=== PATIENT | male | born 1955 | race Caucasian/White ===

== ENCOUNTER → 2016-11-06 | Outpatient (CLI) | payer OTHER ==
[2016-11-06 09:03] LABS: ALT 32 U/L (21-72); AST 31 U/L (17-59); Cholesterol 179 mg/dL (<200); Creatine Kinase 332 U/L (55-170); HDL Cholesterol 51 mg/dL (40-60); Triglycerides 140 mg/dL (<150)
== END | disposition home or self-care (01) ==
LOC: LABWHC1 07:47
PROVIDERS: ATTEND Internal Medicine Interventional Cardiology
DX: E78.2 Mixed hyperlipidemia (principal)
CPT/HCPCS: 36415; 80061; 82550; 84450; 84460

== ENCOUNTER 2017-07-02 09:58 | Day surgery (SDC) | payer OTHER ==
[2017-06-29 13:16] VITALS: BMI 25.1
[~2017-07-02 09:58] MED LIST: LIDOCAINE 1% 20 ML VIAL (10MG/ML) FOR IV START INTRADERMA PRN
[2017-07-02] MEDS: LACTATED RINGERS 1,000 ML IV SCH ×2 (10:33→11:04)
[2017-07-02 10:34] VITALS: TEMP 96.8
[2017-07-02] MEDS ORDERED: PROPOFOL 10 MG/ML 20 ML VIAL IV ONE (11:08)
[2017-07-02 11:45] VITALS: RESP 16
--- NOTE | 2017-07-02 11:50 | P.PCN ---
Date of Procedure: 07/02/17 Procedure(s) Performed: Procedure: Colonoscopy and biopsy. Preoperative diagnosis: Screening for neoplasia. Postoperative diagnosis: Sigmoid diverticulosis with no evidence of acute diverticulitis, strictures, polyps or cancer. Preparation: HalfLytely prep. Sedation: Was provided by anesthesia. Brief clinical history: The patient is a 61-year-old male who is referred for this evaluation for screening for neoplasia age being his risk factor. The patient has been having episodes of unexplained diarrhea around 3 times per week. No definite dietary triggers. There is no family history of colon cancer or inflammatory bowel disease. This would be his first colonoscopy. Procedure: With the patient on his left lateral decubitus position and after informed consent and adequate sedation, the perianal area was inspected and it did not show any fissures or fistulas. There were no masses felt on digital rectal examination. The Olympus CFQ 160L video colonoscope was then inserted in the rectum in the usual fashion and advanced to the cecum. I intubated the ileocecal valve and examined the terminal ileum. There were several diverticular orifices seen scattered in the sigmoid with no evidence of acute diverticulitis or strictures. No polyps or tumors were seen. The terminal ileum and colon did not show any evidence of inflammation. I obtained biopsies from the terminal ileum and right colon. I retroflexed the endoscope in the rectum before the endoscope was withdrawn. The patient tolerated the procedure well. Plan: The patient was reassured. Discussed dietary measures. He will follow up with you as planned. Will await the biopsy results and make further recommendations. Repeat colonoscopy for screening for neoplasia in 10 years.
[2017-07-02 12:10] VITALS: BP 120/84; PULSE 89
== END 2017-07-02 12:53 | disposition home or self-care (01) ==
LOC: ORWHC2ENDO 09:58
DX: R19.7 Diarrhea, unspecified (principal); I10 Essential (primary) hypertension; E78.5 Hyperlipidemia, unspecified; I48.91 Unspecified atrial fibrillation; Z79.899 Other long term (current) drug therapy
CPT/HCPCS: 93005; 88305; 45378; J2704

== ENCOUNTER → 2017-12-01 | Outpatient (CLI) | payer OTHER ==
[2017-12-01 09:35] LABS: ALT 30 U/L (21-72); AST 22 U/L (17-59); Albumin 4.1 g/dL (3.5-5.0); Alkaline Phosphatase 60 U/L (38-126); Blood Urea Nitrogen 19 mg/dL (9-20); Calcium 8.9 mg/dL (8.4-10.2); Carbon Dioxide 27 mmol/L (22-30); Cholesterol 193 mg/dL (<200); Glucose 115 mg/dL (74-99); HDL Cholesterol 44 mg/dL (40-60); LDL Cholesterol,Calculated 129 mg/dL (0-99); Total Bilirubin 0.7 mg/dL (0.2-1.3); Total Protein 6.7 g/dL (6.3-8.2); Triglycerides 100 mg/dL (<150)
[2017-12-01 09:55] LABS: Anion Gap 11 mmol/L; Chloride 103 mmol/L (98-107); Potassium 4.7 mmol/L (3.5-5.1); Sodium 141 mmol/L (137-145)
== END | disposition home or self-care (01) ==
LOC: LABWHC1 08:44
PROVIDERS: ATTEND Internal Medicine Interventional Cardiology
DX: E78.2 Mixed hyperlipidemia (principal)
CPT/HCPCS: 36415; 80053; 80061

== ENCOUNTER 2018-04-18 15:01 | Observation (INO) | payer OTHER ==
[2018-04-18] MEDS ORDERED: ASPIRIN 81 MG PO STA (15:29)
[2018-04-18] MEDS ORDERED: SODIUM CHLORIDE 0.9% 1,000 ML IV STA (15:29)
[2018-04-18] MEDS ORDERED: METOPROLOL TARTRATE 5 MG/5 ML VIAL IVP ONE (15:31)
--- NOTE | 2018-04-18 15:35 | ED ---
Chest Pain HPI - General Chief Complaint: Chest Pain Stated Complaint: Chest Pain Hx AFib Time Seen by Provider: 04/18/18 15:16 Source: patient Mode of arrival: ambulatory Limitations: no limitations - History of Present Illness Initial Comments: Patient is a 62-year-old male with a history of atrial fibrillation presents with a chief complaint of shortness of breath and chest pain. Patient states that this started today. He cannot identify an inciting incident. There are no aggravating or alleviating factors. Patient takes 50 mg of metoprolol twice a day and states that he has not missed any doses. He states his last stress test was about 5 years ago. Patient denies any cough or sputum production. He denies any nausea, vomiting, dysuria, or diarrhea. - Related Data Home Medications Medication Instructions Recorded Confirmed Atorvastatin [Lipitor] 40 mg PO DAILY 06/29/17 04/18/18 Metoprolol Tartrate [Lopressor] 50 mg PO BID 06/29/17 04/18/18 Chlorpheniramine Maleate 4 mg PO DAILY PRN 04/18/18 04/18/18 Allergies Allergy/AdvReac Type Severity Reaction Status Date / Time No Known Allergies Allergy Verified 04/18/18 15:10 Review of Systems ROS Statement: Those systems with pertinent positive or pertinent negative responses have been documented in the HPI. ROS Other: All systems not noted in ROS Statement are negative. Respiratory: Reports: dyspnea Cardiovascular: Reports: chest pain Past Medical History Past Medical History: Atrial Fibrillation, Hyperlipidemia, Hypertension History of Any Multi-Drug Resistant Organisms: None Reported Past Surgical History: Cardiac Ablation Past Anesthesia/Blood Transfusion Reactions: No Reported Reaction Past Psychological History: No Psychological Hx Reported Smoking Status: Former smoker Past Alcohol Use History: Occasional Past Drug Use History: None Reported - Past Family History Brother(s) Family Medical History: Cancer General Exam Limitations: no limitations General appearance: alert, in no apparent distress Head exam: Present: atraumatic, normocephalic Eye exam: Present: normal appearance ENT exam: Present: normal exam, mucous membranes moist Neck exam: Present: normal inspection Respiratory exam: Present: normal lung sounds bilaterally, wheezes (Mild wheezes heard in bilateral lungs). Absent: respiratory distress Cardiovascular Exam: Present: tachycardia, irregular rhythm. Absent: systolic murmur, diastolic murmur GI/Abdominal exam: Present: soft. 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 On initial evaluation, vital signs show mild hypertension, and tachycardia. EKG performed at 1514 shows atrial fibrillation with RVR. There are no acute signs of ischemia. Patient given aspirin, and 5 mg of Lopressor IV. Patient to be evaluated basic labs including cardiac enzymes, and chest x-ray. Patient states his last stress test was about 5 years ago, patient will be admitted for further cardiac evaluation. 5:30 PM Lab evaluation of this patient is unremarkable. chest xray shows no acute process. on re-evaluation, heart rate is now in the 90's, pressure stable. patient states that he feels mild improvement. case discussed with Dr. Acevedo who accepts admission. consult placed to cardiology. patient agreeable with this care plan. Disposition Clinical Impression: Atrial fibrillation with RVR, Chest pain Disposition: ADMITTED IP TO THIS HOSP Condition: Fair Is patient prescribed a controlled substance at d/c from ED?: No Referrals: Louie Case MD [Primary Care Provider] - 1-2 days Decision to Admit Reason: Admit from EC - Out of Hospital Transfer - Req. Specs Out of Hospital Transfer - Requested Specifics: Telemetry Unit
[2018-04-18 15:59] LABS: Basophils # (A) 0.1 k/uL (0-0.2); Basophils % (A) 1 %; Eosinophils # (A) 0.2 k/uL (0-0.7); Eosinophils % (A) 2 %; HCT 49.9 % (39.0-53.0); HGB 16.3 gm/dL (13.0-17.5); Lymphocytes # (A) 1.5 k/uL (1.0-4.8); Lymphocytes % (A) 14 %; MCH 30.5 pg (25.0-35.0); MCHC 32.6 g/dL (31.0-37.0); MCV 93.4 fL (80.0-100.0); Mean Platelet Volume 7.3; Monocytes # (A) 0.5 k/uL (0-1.0); Monocytes % (A) 4 %; Neutrophils # (A) 8.5 k/uL (1.3-7.7); Neutrophils % (A) 79 %; Platelet Count 242 k/uL (150-450); RBC 5.34 m/uL (4.30-5.90); RDW 13.5 % (11.5-15.5); WBC 10.8 k/uL (3.8-10.6)
[2018-04-18 16:19] LABS: Albumin 4.6 g/dL (3.5-5.0); Calcium 9.3 mg/dL (8.4-10.2); Magnesium 1.9 mg/dL (1.6-2.3); Total Bilirubin 1.2 mg/dL (0.2-1.3)
[2018-04-18 16:32] LABS: Potassium 5.1 mmol/L (3.5-5.1)
[2018-04-18 16:35] LABS: INR 1.1 (<1.2); Partial Thromboplastin Time 23.9 sec (22.0-30.0); Prothrombin Time 10.3 sec (9.0-12.0)
--- NOTE | 2018-04-18 16:52 | XR ---
EXAMINATION TYPE: XR chest 2V DATE OF EXAM: 04/18/2018 COMPARISON: 07/18/2010 HISTORY: Chest pain TECHNIQUE: Frontal and lateral views of the chest are obtained. FINDINGS: Heart and mediastinum are within normal limits. There is a 1 cm nodular density in the rig ht midlung that is probably granuloma. There is no pleural effusion. There is no heart failure. IMPRESSION: No active cardiopulmonary disease. There is clearing of the heart failure and pleural fl uid compared to old exam. Old granulomatous disease.
[2018-04-18] MEDS ORDERED: NALOXONE 0.4 MG/ML 1 ML VIAL IV PRN (17:28)
[2018-04-18] MEDS ORDERED: SODIUM CHLORIDE 0.9% 1,000 ML IV ONE (18:53)
[2018-04-18] MEDS ORDERED: KETOROLAC 30 MG/ML 1 ML VIAL IVP STA (18:53)
[2018-04-18] MEDS ORDERED: ONDANSETRON 4 MG/2 ML VIAL IVP STA (18:53)
--- NOTE | 2018-04-18 19:43 | CT ---
EXAMINATION TYPE: CT abdomen pelvis w con DATE OF EXAM: 04/18/2018 COMPARISON: None HISTORY: Epigastric pain and nausea. CT DLP: 797.9 mGycm Automated exposure control for dose reduction was used. TECHNIQUE: Helical acquisition of images was performed from the lung bases through the pelvis. CONTRAST: Performed without Oral Contrast and with IV Contrast, patient injected with 100 mL of Isovue 300. FINDINGS: Lung bases are clear of consolidation. There is no pleural effusion. There is mild subsegmental atele ctasis at the lung bases. Heart size is normal. There are small hiatal hernia. The remainder of the s tomach appears normal. Liver appears normal. Bile ducts are not dilated. Gallbladder appears normal. There is no pancreatic mass. There is heterogeneous enhancement pattern of the spleen consistent with multiple infarcts. Thi s measures up to 4 cm. There is no adrenal mass. Kidneys show satisfactory contrast opacification. There is no hydronephrosi s. There is cortical thinning lower pole right kidney consistent with scarring. There is 2 mm calculu s lower pole right kidney. There is 1 mm calculus interpolar left kidney. There is no retroperitoneal adenopathy. Ureters are not dilated. There is no inguinal hernia. Bladder distends smoothly. There i s no free fluid in the pelvis. There is no mesenteric adenopathy or edema. Appendix appears normal. T here is umbilical hernia that contains fat. There is no evidence of a pelvic mass. There are a few lo ops of jejunum with mild wall thickening. There is 25% compression fracture of L3 that appears old. B sheldon pelvis appears intact. IMPRESSION: THERE IS MILD JEJUNAL WALL THICKENING THAT COULD RELATE TO MILD GASTROENTERITIS. HYPODENSE AREAS IN THE SPLEEN CONSISTENT WITH MULTIPLE INFARCTS. SCARRING IN THE LOWER POLE RIGHT KID CHONG. OLD L3 COMPRESSION FRACTURE.
[2018-04-18] MEDS ORDERED: metroNIDAZOLE-NS PMX 500 MG in SALINE 1 100ML.BAG IVPB STA (20:01)
[2018-04-18] MEDS ORDERED: METOPROLOL TARTRATE 50 MG TAB PO STA (20:11)
[2018-04-18] MEDS: MORPHINE SULFATE 4 MG/ML SYRINGE IVP PRN (20:27)
[2018-04-18] MEDS: APIXABAN 5 MG TAB PO SCH (23:21)
[2018-04-18 23:24] VITALS: RESP 16
[2018-04-19] MEDS: MORPHINE SULFATE 4 MG/ML SYRINGE IVP PRN ×3 (00:40→22:35)
--- NOTE | 2018-04-19 11:10 | ECHOF ---
Referral Reason: MEASUREMENTS -------- HEIGHT: 177.8 cm WEIGHT: 83.9 kg BP: 120/88 RVIDd: 2.3 cm (< 3.3) IVSd: 1.3 cm (0.6 - 1.1) LVIDd: 3.4 cm (3.9 - 5.3) LVPWd: 1.3 cm (0.6 - 1.1) IVSs: 1.5 cm LVIDs: 2.7 cm LVPWs: 1.3 cm LAESV Index (A-L): 40.92 ml/m Ao Diam: 2.9 cm (2.0 - 3.7) AV Cusp: 2.0 cm (1.5 - 2.6) LA Diam: 4.3 cm (2.7 - 3.8) EPSS: 0.6 cm MV E [place]: 0.89 m/s MV DecT: 191 ms MV A [place]: 0.49 m/s MV E/A Ratio: 1.83 RAP: 5.00 mmHg RVSP: 22.82 mmHg MV EF SLOPE: 151.50 mm/s (70 - 150) MV EXCURSION: 1.90 cm (> 18.000) FINDINGS -------- Atrial fibrillation. This was a technically adequate study. The left ventricular size is normal. There is mild concentric left ventricular hypertrophy. There is mild global hypokinesis of LV . Overall left ventricular systolic function is mild-moderately i mpaired with, an EF between 40 - 45 %. The right ventricle is normal in size and function. LA is severely dilated >40 ml/m2 RA appears enlarged. The aortic valve is trileaflet, and appears structurally normal. No aortic stenosis or regurgitation. The mitral valve leaflets are mildly thickened. Mild mitral regurgitation is present. Trace tricuspid regurgitation present. Right ventricular systolic pressure is normal at < 35 mmHg. There is no evidence of pulmonary hypertension. The pulmonic valve was not well visualized. The aortic root size is normal. IVC Not well visulized. There is no pericardial effusion. CONCLUSIONS -------- 1. Atrial fibrillation. 2. This was a technically adequate study. 3. The left ventricular size is normal. 4. There is mild concentric left ventricular hypertrophy. 5. There is mild global hypokinesis of LV . 6. Overall left ventricular systolic function is mild-moderately impaired with, an EF between 40 - 45 %. 7. LA is severely dilated >40 ml/m2 8. RA appears enlarged. 9. The aortic valve is trileaflet, and appears structurally normal. No aortic stenosis or regurgitati on. 10. The mitral valve leaflets are mildly thickened. 11. Mild mitral regurgitation is present. 12. Trace tricuspid regurgitation present. 13. Right ventricular systolic pressure is normal at < 35 mmHg. 14. There is no evidence of pulmonary hypertension. 15. The pulmonic valve was not well visualized. 16. The aortic root size is normal. 17. IVC Not well visulized. 18. There is no pericardial effusion. REJOGGER: Armando Stallworth RDCS
[2018-04-19] MEDS ORDERED: HEPARIN SODIUM,PORCINE 5,000 UNIT/ML 1 ML VIAL IV PRN (12:33)
[2018-04-19] MEDS: METOPROLOL TARTRATE 25 MG TAB PO SCH ×2 (12:38→20:17)
[2018-04-19] MEDS: APIXABAN 5 MG TAB PO SCH (12:39)
--- NOTE | 2018-04-19 13:06 | HP ---
HISTORY AND PHYSICAL DATE OF ADMISSION: 04/18/2018 DATE OF SERVICE: 04/19/2018 PRESENT COMPLAINT: Palpitation. HISTORY OF PRESENTING COMPLAINT: This is a pleasant 62-year-old patient of Dr. Case. Chronic stable medical conditions include GERD, hyperlipidemia, osteoarthritis in multiple joints. Yesterday morning, did not feel well, started developing left precordial sharp pains, pretty much constant. There was no radiation. No dizziness. No lightheadedness. felt his heart racing with palpitations. No perspiration, minimal short of breath. Patient decided to present to the ER. Patient has had atrial fibrillation for a long time. Also had ablation by Dr. Pedro, was anticoagulation, but because he would bleed easily after he would get cut, decided to stop the same med and he could not keep his appointments for the Coumadin follow up. Patient also had a CT scan in the ER that showed multiple splenic infarct. Patient was started earlier on Eliquis. Patient's heart rate is still uncontrolled. REVIEW OF SYSTEMS: CONSTITUTIONAL: Tired. HEENT: None. RESPIRATORY: Occasionally short of breath and wheezing. CARDIOVASCULAR: As above. GASTROINTESTINAL: Heartburn. GENITOURINARY: None. MUSCULOSKELETAL: Aches and pain in many joints including the hands, shoulders, back. DERMATOLOGICAL: None. HEMATOLOGICAL: None. LYMPHATIC: None. NEUROLOGICAL: None. PSYCHIATRY: None. PAST MEDICAL HISTORY: Atrial fibrillation with ablation, GERD, hyperlipidemia, osteoarthritis, arthritis of the left hip, left hand, multiple fractures, cervical back pain, right knee dislocation, shoulder pain. PAST SURGICAL HISTORY: Cardiac ablation, left knee arthroscopy, colonoscopy. SOCIAL HISTORY: Lives by himself. Smoked for about 38 years, stopped in 2012. Works in [employer], does lot of heavy lifting. Lives by himself. FAMILY HISTORY: Brother had lung cancer, was a smoker. HOME MEDICATIONS: 1. Lopressor 50 mg b.i.d. 2. Chlorpheniramine 4 mg p.o. daily p.r.n. 3. Lipitor 40 mg p.o. daily. ALLERGIES: None. PHYSICAL EXAMINATION: VITAL SIGNS: On presentation, temperature 97.9, pulse 120, respiration 18, blood pressure 110/78, pulse ox 100% on room air. GENERAL APPEARANCE: Average built, sitting up, awake. EYES: Pupils equal, conjunctivae are normal. HEENT: External appearance of nose and ear normal, oral cavity normal. NECK: JVD not raised. Mass not palpable. RESPIRATORY: Effort normal. LUNGS: Slightly diminished breath sounds. CARDIOVASCULAR: Heart sounds, irregular, no edema. ABDOMEN: Soft, nontender. Liver and spleen not palpable. LYMPHATIC: No lymph note palpable in neck or axillae. PSYCHIATRY: Alert and oriented x3. Mood and affect normal. NEUROLOGICAL: Pupils equal. Cranial nerves grossly intact. Power and sensation grossly intact. MUSCULOSKELETAL: Evidence of osteoarthritis, especially in the hands. INVESTIGATIONS: White count 10.8, hemoglobin 16.3 potassium 5.1, BUN and creatinine normal. Troponin x3 negative. EKG tracing personally reviewed by me shows atrial fibrillation rapid rate. CT scan of the abdomen and pelvis shows evidence of kidney stones in both the kidneys, compression fracture L3 that is chronic and hyperdense area in the spleen consistent with multiple infarcts. ASSESSMENT: 1. 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 2. Persistent atrial fibrillation with a prior history of ablation by Dr. Pedro, now presented controlled. 3. Gastroesophageal reflux disease. 4. Hyperlipidemia. 5. Primary osteoarthritis of multiple joints. PLAN: Cardiology was consulted. Patient has been started on Eliquis, but probably may consider doing heparin for at least 24 hours before switching over to Eliquis. Will discuss with Cardiology. Will also discuss the need to do a MOSHE. MMODL / IJN: [id number] /
--- NOTE | 2018-04-19 13:55 | P.CRDCN ---
History of Present Illness History of present illness: Mr. Ackerman is a pleasant 62-year-old male past medical history significant for chronic persistent atrial fibrillation not on longterm anticoagulation secondary to low CHADS-VASC score. Anti-coagulation is not indicated. He also has dyslipidemia and gastroesophageal reflux disease. He has undergone multiple failed cardioversions as well as failed ablation. He follows with Dr. Blair in the office. We've been asked to see him in consultation for symptoms of chest discomfort. He has no history of coronary artery disease. He states he worked yesterday morning at the [employer] doing a lot of heavy lifting and physical exertion. While he was driving home at the end of his day he started feeling a pain in the left upper quadrant describes as a sharp pressure sensation. The pain radiated up to his left precordial region with radiation into his axilla. He felt like it hurt worse to take a deep breath and was feeling mildly dyspneic. He also felt nauseated with no vomiting. His pain persisted for 90 minutes prior to arrival to ED. After being here he was given morphine and his pain would lighten up mildly but still there for another 3+ hours. It finally subsided through the night. He denies palpitations, dizziness, vomiting or diaphoresis. Initially upon arrival he was found to be in atrial fibrillation with rapid ventricular response. He was given 5 mg of IV Lopressor and heart rate seemed to improve mildly. He continues to be mildly tachycardic between 90-110. CT of his abdomen pelvis was performed and revealed area of hypodensity in the spleen consistent with multiple infarcts, scarring in the lower pole of the right kidney as well as an old L3 compression fracture. Evidence of mild gastral wall thickening that could relate to mild gastroenteritis. Echocardiogram reveals mild to moderately impaired LV systolic function with ejection fraction 40-45%, severely dilated left atrium, enlarged right atrium and mild MR. Previous echocardiogram obtained in the office May 2017 revealed preserved left ventricular systolic function with ejection fraction 55%. EKG reveals atrial fibrillation. Chest x-ray negative for an acute cardiopulmonary process. Laboratory data reviewed, WBC 10.8, hemoglobin 16.3, platelet 242, sodium 140, potassium 5.1, magnesium 1.2, creatinine 1.13, cardiac enzymes negative 3, NT proBNP 738. Current cardiac medications include atorvastatin 40 mg daily and Lopressor 50 [place] grams twice a day. At the time of my exam: CONSTITUTIONAL: Denies fever. Denies chills. EYES: Denies blurred vision. Denies vision changes. Denies eye pain. EARS, NOSE, MOUTH & THROAT: Denies headache. Denies sore throat. Denies ear pain. CARDIOVASCULAR: Denies chest pain. Denies shortness of breath. Denies orthopnea. Denies PND. Denies palpitations. RESPIRATORY: Denies cough. GASTROINTESTINAL: Denies abdominal pain. Denies diarrhea. Denies constipation. Denies nausea. Denies vomiting. MUSCULOSKELETAL: Denies myalgias. INTEGUMENTARY: Denies pruitis. Denies rash. NEUROLOGIC: Denies numbness. Denies tingling. Denies weakness. PSYCHIATRIC: Denies anxiety. Denies depression. ENDOCRINE: Denies fatigue. Denies weight change. Denies polydipsia. Denies polyurina. GENITOURINARY: Denies burning, hematuria or urgency with micturation. HEMATOLOGIC: Denies history of anemia. Denies bleeding. Blood pressure 147/88 heart rate 107 afebrile maintaining oxygen saturation on room air GENERAL: This is a 62-year-old male in no apparent distress at the time of my examination. HEENT: Head is atraumatic, normocephalic. Pupils are equal, round. Sclerae anicteric. Conjunctivae are clear. Mucous membranes of the mouth are moist. Neck is supple. There is no jugular venous distention. No carotid bruit is heard. LUNGS: Clear to auscultation no wheezes, rales or rhonchi. No chest wall tenderness is noted on palpation or with deep breathing. HEART: Irregular rate and rhythm without murmurs, rubs or gallops. S1 and S2 heard. ABDOMEN: Soft, nontender. Bowel sounds are heard. No organomegaly noted. EXTREMITIES: No evidence of peripheral edema and no calf tenderness noted. VASCULAR: Radial and dorsalis pedis pulses palpated, no evidence of clubbing. NEUROLOGIC: Patient is awake, alert and oriented x3. ASSESSMENT Acute splenic infarct Chest pain, atypical. An acute coronary event has been ruled out with no EKG evidence of ischemia and negative cardiac enzymes. Chronic persistent atrial fibrillation, CHADS-VASC score of 0, not indicated for longterm anticoagulation. Dyslipidemia Worsening LV systolic function with EF down from previous echo in the office. Current EF 40-45%. Currently euvolemic Leukocytosis PLAN He has been started on Eliquis per ED and changed to heparin infusion per primary. Increase lopressor to 75 mg BID for better rate control. Echo has been obtained and reviewed. LV systolic function worsened since last time. Add on MICHAEL inhibitor and resume atorvastatin. Ongoing telemetry monitoring. Awaiting surgical evaluation. Further recommendations to follow. Thank you kindly for this consultation. Nurse Practitioner note has been reviewed, I agree with a documented findings and plan of care. Patient was seen and examined. Past Medical History Past Medical History: Atrial Fibrillation, GERD/Reflux, Hyperlipidemia, Osteoarthritis (OA), Pneumonia Additional Past Medical History / Comment(s): Arthritis L hip and L hand, past vertebral fractures, cervical/back pain, R knee dislocations, bilateral shoulder pain with L side worse, migraines History of Any Multi-Drug Resistant Organisms: None Reported Past Surgical History: Cardiac Ablation Additional Past Surgical History / Comment(s): CVN x 3, cardiac ablation, L knee arthroscopy, colonoscopy. Past Anesthesia/Blood Transfusion Reactions: No Reported Reaction Smoking Status: Light tobacco smoker - Past Family History Brother(s) Family Medical History: Cancer Additional Family Medical History / Comment(s): Brother had lung cancer. He was a smoker. Mother Family Medical History: Coronary Artery Disease (CAD) Additional Family Medical History / Comment(s): Mother is 82 yrs old. Father Family Medical History: Cancer Additional Family Medical History / Comment(s): Father had pancreatic cancer. Medications and Allergies Home Medications Medication Instructions Recorded Confirmed Type Atorvastatin [Lipitor] 40 mg PO DAILY 06/29/17 04/18/18 History Metoprolol Tartrate [Lopressor] 50 mg PO BID 06/29/17 04/18/18 History Chlorpheniramine Maleate 4 mg PO DAILY PRN 04/18/18 04/18/18 History Allergies Allergy/AdvReac Type Severity Reaction Status Date / Time No Known Allergies Allergy Verified 04/18/18 15:10 Physical Exam Vitals: Vital Signs Temp Pulse Pulse Pulse Resp BP BP 04/19/18 12:57 97.9 F 107 H 16 147/88 04/19/18 12:42 98 F 78 16 140/88 04/19/18 07:00 120/88 04/19/18 06:45 105 H 16 120/88 04/19/18 03:53 92 16 140/103 04/18/18 23:55 100 16 149/109 04/18/18 23:23 114 H 16 138/112 04/18/18 21:40 98.0 F 110 H 18 127/92 04/18/18 20:51 108 H 18 151/86 04/18/18 20:34 122 H 16 151/98 04/18/18 20:08 105 H 18 152/101 04/18/18 19:44 149/98 04/18/18 19:00 98.7 F 106 H 20 150/106 04/18/18 18:30 112 H 20 160/117 04/18/18 18:10 159/119 04/18/18 15:23 20 04/18/18 15:19 112 H 04/18/18 15:03 97.9 F 120 H 18 117/78 Pulse Ox 04/19/18 12:57 97 04/19/18 12:42 98 04/19/18 07:00 04/19/18 06:45 98 04/19/18 03:53 97 04/18/18 23:55 99 04/18/18 23:23 100 04/18/18 21:40 98 04/18/18 20:51 97 04/18/18 20:34 97 04/18/18 20:08 04/18/18 19:44 04/18/18 19:00 99 04/18/18 18:30 98 04/18/18 18:10 04/18/18 15:23 04/18/18 15:19 04/18/18 15:03 100 Intake and Output 04/18/18 04/19/18 04/19/18 22:59 06:59 14:59 Other: Weight 83.915 kg Results 04/18/18 15:15 04/18/18 15:15 Cardiac Enzymes 04/18/18 04/18/18 04/18/18 Range/Units 15:15 15:15 21:34 AST 34 (17-59) U/L Troponin I <0.012 <0.012 (0.000-0.034) ng/mL 04/19/18 Range/Units 03:36 AST (17-59) U/L Troponin I <0.012 (0.000-0.034) ng/mL Coagulation 04/18/18 Range/Units 15:15 PT 10.3 (9.0-12.0) sec APTT 23.9 (22.0-30.0) sec CBC 04/18/18 Range/Units 15:15 WBC 10.8 H (3.8-10.6) k/uL RBC 5.34 (4.30-5.90) m/uL Hgb 16.3 (13.0-17.5) gm/dL Hct 49.9 (39.0-53.0) % Plt Count 242 (150-450) k/uL Comprehensive Metabolic Panel 04/18/18 Range/Units 15:15 Sodium 140 (137-145) mmol/L Potassium 5.1 (3.5-5.1) mmol/L Chloride 104 (98-107) mmol/L Carbon Dioxide 25 (22-30) mmol/L BUN 20 (9-20) mg/dL Creatinine 1.13 (0.66-1.25) mg/dL Glucose 121 H (74-99) mg/dL Calcium 9.3 (8.4-10.2) mg/dL AST 34 (17-59) U/L ALT 26 (21-72) U/L Alkaline Phosphatase 66 (38-126) U/L Total Protein 8.0 (6.3-8.2) g/dL Albumin 4.6 (3.5-5.0) g/dL Current Medications Generic Name Dose Route Start Last Admin Trade Name Freq PRN Reason Stop Dose Admin Heparin Sodium (Porcine) 0 unit 04/19/18 12:33 Heparin IV PER PROTOCOL PRN Low PTT Protocol Heparin Sodium/Sodium Chloride 500 mls @ 30.2 mls/hr 04/19/18 13:15 25,000 unit/ Sodium Chloride IV .[id number] [facility] Protocol 18 UNITS/KG/HR Metoprolol Tartrate 75 mg 04/19/18 09:00 04/19/18 12:38 Lopressor PO 75 mg BID DIANE Administration Morphine Sulfate 4 mg 04/18/18 20:05 04/19/18 07:24 Morphine Sulfate (Inj) IVP 4 mg Q4HR PRN Administration Pain Naloxone HCl 0.2 mg 04/18/18 17:28 Narcan IV Q2M PRN Opioid Reversal Intake and Output 04/18/18 04/19/18 04/19/18 22:59 06:59 14:59 Other: Weight 83.915 kg 04/18/18 15:15 04/18/18 15:15
[2018-04-19] MEDS: HEPARIN SOD,PORK IN 0.45% NACL 25,000 UNIT in 0.45% NACL 1 500ML.BAG IV SCH (16:00)
--- NOTE | 2018-04-19 16:36 | P.GSCN ---
History of Present Illness Consult date: 04/19/18 Reason for Consult: Splenic infarct History of present illness: This is a 62-year-old male who was admitted through the emergency room with H fibrillation with rapid rate. Patient awake CAT scan due to some left-sided abdominal pain. He still have some splenic infarcts. Patient states that he is currently pain-free. Past Medical History Past Medical History: Atrial Fibrillation, GERD/Reflux, Hyperlipidemia, Osteoarthritis (OA), Pneumonia Additional Past Medical History / Comment(s): Arthritis L hip and L hand, past vertebral fractures, cervical/back pain, R knee dislocations, bilateral shoulder pain with L side worse, migraines History of Any Multi-Drug Resistant Organisms: None Reported Past Surgical History: Cardiac Ablation Additional Past Surgical History / Comment(s): CVN x 3, cardiac ablation, L knee arthroscopy, colonoscopy. Past Anesthesia/Blood Transfusion Reactions: No Reported Reaction Smoking Status: Light tobacco smoker - Past Family History Brother(s) Family Medical History: Cancer Additional Family Medical History / Comment(s): Brother had lung cancer. He was a smoker. Mother Family Medical History: Coronary Artery Disease (CAD) Additional Family Medical History / Comment(s): Mother is 82 yrs old. Father Family Medical History: Cancer Additional Family Medical History / Comment(s): Father had pancreatic cancer. Medications and Allergies Home Medications Medication Instructions Recorded Confirmed Type Atorvastatin [Lipitor] 40 mg PO DAILY 06/29/17 04/18/18 History Metoprolol Tartrate [Lopressor] 50 mg PO BID 06/29/17 04/18/18 History Chlorpheniramine Maleate 4 mg PO DAILY PRN 04/18/18 04/18/18 History Allergies Allergy/AdvReac Type Severity Reaction Status Date / Time No Known Allergies Allergy Verified 04/18/18 15:10 Surgical - Exam Vital Signs Temp Pulse Resp BP Pulse Ox 97.9 F 120 H 18 117/78 100 04/18/18 15:03 04/18/18 15:03 04/18/18 15:03 04/18/18 15:03 04/18/18 15:03 - General well developed, no distress - Eyes PERRL - ENT normal pinna - Neck no masses - Respiratory normal expansion - Cardiovascular Rhythm: regular - Abdomen Abdomen: soft, non tender Results - Labs 04/18/18 15:15 04/18/18 15:15 Assessment and Plan Assessment: Splenic infarct most likely due to embolic event. Patient is currently being anticoagulated. He currently has no pain. We will observe him.
[2018-04-19 16:44] LABS: Partial Thromboplastin Time 23.4 sec (22.0-30.0); Prothrombin Time 10.1 sec (9.0-12.0)
[2018-04-19] MEDS: LISINOPRIL 5 MG TAB PO SCH (17:06)
[2018-04-20 07:29] VITALS: TEMP 97.4
[2018-04-20] MEDS: LISINOPRIL 5 MG TAB PO SCH (08:35)
[2018-04-20] MEDS: METOPROLOL TARTRATE 25 MG TAB PO SCH (08:35)
[2018-04-20] MEDS ORDERED: ACETAMINOPHEN TAB 325 MG TAB PO PRN (08:39)
[2018-04-20] MEDS ORDERED: ATORVASTATIN 40 MG TAB PO SCH (09:00)
[2018-04-20 09:07] LABS: Basophils % (A) 1 %; Eosinophils # (A) 0.2 k/uL (0-0.7); Eosinophils % (A) 3 %; HCT 41.6 % (39.0-53.0); HGB 13.4 gm/dL (13.0-17.5); Lymphocytes # (A) 1.3 k/uL (1.0-4.8); Lymphocytes % (A) 19 %; MCHC 32.1 g/dL (31.0-37.0); MCV 93.6 fL (80.0-100.0); Mean Platelet Volume 6.9; Monocytes # (A) 0.4 k/uL (0-1.0); Monocytes % (A) 7 %; Neutrophils # (A) 4.6 k/uL (1.3-7.7); Neutrophils % (A) 69 %; Platelet Count 164 k/uL (150-450); RBC 4.45 m/uL (4.30-5.90); RDW 13.6 % (11.5-15.5); WBC 6.7 k/uL (3.8-10.6)
[2018-04-20] MEDS: HEPARIN SOD,PORK IN 0.45% NACL 25,000 UNIT in 0.45% NACL 1 500ML.BAG IV SCH (09:51)
[2018-04-20 11:20] VITALS: BP 105/67; PULSE 93
--- NOTE | 2018-04-20 12:45 | P.PN ---
Subjective Mr. Ackerman is seen and examined sitting up in bed. Past medical history significant for chronic persistent atrial fibrillation not on bar tacker anticoagulation secondary to low CHADS-VASC score. Anti-coagulation is not indicated. He also has dyslipidemia and gastroesophageal reflux disease. He has undergone multiple failed cardioversions as well as failed ablation. He follows with Dr. Blair in the office. He has suffered a splenic infarct and has been anticoagulated with IV heprain infusion since admission. Surgery has seen and is recommending that he is stable with no acute surgical intervention needed. Echo obtained yesterday revealed his LV systolic function has decreased since last year May. We added him on MICHAEL inhibitor yesterday and increase his beta heena. He denies any abdominal or chest pain. He states when he takes a deep breath he feels mildly uncomfortable in the left upper quadrant. GENERAL: This is a 62-year-old male in no apparent distress at the time of my examination. HEENT: Head is atraumatic, normocephalic. Pupils are equal, round. Sclerae anicteric. Conjunctivae are clear. Mucous membranes of the mouth are moist. Neck is supple. There is no jugular venous distention. No carotid bruit is heard. LUNGS: Clear to auscultation no wheezes, rales or rhonchi. No chest wall tenderness is noted on palpation or with deep breathing. HEART: Irregular rate and rhythm without murmurs, rubs or gallops. S1 and S2 heard. ABDOMEN: Soft, nontender. Bowel sounds are heard. No organomegaly noted. EXTREMITIES: No evidence of peripheral edema and no calf tenderness noted. VASCULAR: Radial and dorsalis pedis pulses palpated, no evidence of clubbing. NEUROLOGIC: Patient is awake, alert and oriented x3. ASSESSMENT Acute splenic infarct Chest pain, atypical. An acute coronary event has been ruled out with no EKG evidence of ischemia and negative cardiac enzymes. Chronic persistent atrial fibrillation, CHADS-VASC score of 0, not indicated for assisted anticoagulation. Dyslipidemia Worsening LV systolic function with EF down from previous echo in the office. Current EF 40-45%. Currently euvolemic Leukocytosis PLAN He will require assisted anti-coagulation post discharge. Eliquis coverage will be checked by case management. Prescriptions will be sent for lisinopril and lopressor. Follow up appointment meghan with Dr. Blair in 2 weeks. Plan has been discussed in detail with the patient and he verbalizes understanding. Nurse Practitioner note has been reviewed, I agree with a documented findings and plan of care. Patient was seen and examined. Objective - Vital Signs Vital signs: Vital Signs Temp 97.4 F L 04/20/18 11:12 Pulse 93 04/20/18 11:12 Resp 16 04/20/18 11:12 BP 105/67 04/20/18 11:12 Pulse Ox 95 04/20/18 11:12 Intake & Output 04/19/18 04/20/18 04/20/18 18:59 06:59 18:59 Intake Total 240 153.324 476 Balance 240 153.324 476 Intake: Intake, IV Titration 153.324 Amount Heparin Sod,Pork in 0.45% 153.324 NaCl 25,000 unit In 0.45 % NaCl 1 500ml.bag @ 18 UNITS/KG/HR 30.2 mls/hr IV .[id number] [facility] Rx#: [id number] Oral 240 476 Other: Voiding Method Toilet Toilet Toilet # Voids 1 2 1 - Labs CBC & Chem 7: 04/20/18 08:25 04/18/18 15:15 Labs: Abnormal Lab Results - Last 24 Hours (Table) 04/19/18 04/20/18 Range/Units 23:05 08:25 APTT 32.9 H 49.3 H (22.0-30.0) sec
--- NOTE | 2018-04-21 00:37 | DS ---
DISCHARGE SUMMARY DATE OF ADMISSION: 04/11/2018. DATE OF DISCHARGE: 04/20/2018. FINAL DIAGNOSES: 1. Acute on chronic multiple splenic infarcts, could be embolic in nature. 2. Persistent atrial fibrillation with a prior history of ablation, now presented with heart rate uncontrolled. 3. IV heparin monitoring. 4. Gastroesophageal reflux disease. 5. Primary osteoarthritis, multiple joints. 6. Chronic nonischemic cardiomyopathy, ejection fraction 40% to 45%, from systolic dysfunction. HOSPITAL COURSE: This patient has a prior history of atrial fibrillation. Did have ablation in the past and was anticoagulated, but because he was finding it difficult to keep his appointment for Coumadin, decided to stop the same. The patient presents with some left-sided sharp pain. The patient's CT scan of the abdomen and pelvis showed multiple splenic infarcts. The patient was treated with IV heparin for 24 hours initially, then switched over to Eliquis. The patient was explained the importance of taking Eliquis. Consultations with Dr. Walter from General Surgery and Dr. Maria G Contreras from Cardiology. A 2D echocardiogram showed an EF of 40% to 45%. The patient will probably need an outpatient cardiac catheterization. This could be arrhythmia-induced cardiomyopathy. Discussion and discharge planning more than 35 minutes. DISCHARGE MEDICATIONS: 1. Lipitor 40 mg a day. 2. Eliquis 5 mg p.o. b.i.d. 3. Zestril 5 mg p.o. daily. 4. Lopressor 75 mg p.o. b.i.d. FOLLOWUP: 1. Follow up with Dr. Blair on 05/03/2018. 2. Follow up with Dr. Case in 1 week. Discussion and discharge planning more than 35 minutes. MMODL / IJN: [id number] /
== END 2018-04-20 16:21 | disposition home or self-care (01) ==
LOC: EC 15:01 → 1SOBS 17:28 → OBSVTOIN 04-20 08:25 → INTOOBSV 04-20 08:25 → UNDODISIN 04-20 16:21
PROVIDERS: ADMIT Hospitalist; ATTEND Hospitalist
DX: D73.5 Infarction of spleen (principal); R07.9 Chest pain, unspecified; I48.1 Persistent atrial fibrillation; I11.9 Hypertensive heart disease without heart failure; E78.5 Hyperlipidemia, unspecified; F17.210 Nicotine dependence, cigarettes, uncomplicated; I48.2 Chronic atrial fibrillation; K21.9 Gastro-esophageal reflux disease without esophagitis; K52.9 Noninfective gastroenteritis and colitis, unspecified; G43.909 Migraine, unspecified, not intractable, without status migrainosus; M16.12 Unilateral primary osteoarthritis, left hip; M19.042 Primary osteoarthritis, left hand; Z79.899 Other long term (current) drug therapy; Z87.81 Personal history of (healed) traumatic fracture; Z87.01 Personal history of pneumonia (recurrent); Z80.0 Family history of malignant neoplasm of digestive organs; Z80.1 Family history of malignant neoplasm of trachea, bronchus and lung; Z82.49 Family history of ischemic heart disease and other diseases of the circulatory system; Z81.2 Family history of tobacco abuse and dependence
CPT/HCPCS: 96366 ×2; 96367 ×2; 96376 ×2; 96361; 96365; 96375; 99285; 36415; 93005; 93306; 83880; 80053; 83735; 84484 ×2; 85025 ×2; 85610 ×2; 85730 ×3; 71046; 74177; G0378 ×4; J2270 ×2; J2405; J1644; J0696; J1885; Q9967

== ENCOUNTER → 2018-04-28 | Outpatient (CLI) | payer OTHER ==
[2018-04-28 17:56] LABS: Albumin 4.3 g/dL (3.80-4.90); Albumin/Globulin Ratio 2.05 (1.20-2.10); Anion Gap 7.7 mmol/L (4.00-12.00); Calcium 8.8 mg/dL (8.7-10.3); Carbon Dioxide 28.3 mmol/L (21.6-31.8); Globulin 2.1 g/dL (2.1-3.7); LDL Cholesterol,Calculated 140.8 mg/dL (0.0-131.0); Potassium 4.6 mmol/L (3.5-5.5); Total Bilirubin 0.7 mg/dL (0.3-1.2); Total Protein 6.4 g/dL (6.2-8.2); VLDL Calculation 30.2 mg/dL (5.00-40.00)
== END | disposition home or self-care (01) ==
LOC: LABWHC1 08:05
PROVIDERS: ATTEND Internal Medicine Interventional Cardiology
DX: E78.2 Mixed hyperlipidemia (principal)
CPT/HCPCS: 36415; 80053; 80061

== ENCOUNTER → 2018-08-20 | Outpatient (CLI) | payer OTHER ==
[2018-08-20 18:04] LABS: LDL Cholesterol,Calculated 128.8 mg/dL (0.0-131.0); VLDL Calculation 32.2 mg/dL (5.00-40.00)
== END ==
LOC: LABWHC1 08:08
PROVIDERS: ATTEND Nurse Practitioner Adult Health
DX: E78.2 Mixed hyperlipidemia (principal)
CPT/HCPCS: 36415; 80061; 84450; 84460

== ENCOUNTER → 2018-10-26 | Outpatient (CLI) | payer BC ==
[2018-10-26 10:43] LABS: LDL Cholesterol,Calculated 116.8 mg/dL (0.0-131.0); VLDL Calculation 24.2 mg/dL (5.00-40.00)
== END | disposition home or self-care (01) ==
LOC: LABWHC1 07:42
PROVIDERS: ATTEND Nurse Practitioner Adult Health
DX: E78.2 Mixed hyperlipidemia (principal)
CPT/HCPCS: 36415; 80061; 84450; 84460

== ENCOUNTER → 2019-01-05 | Outpatient (CLI) | payer BC ==
[2019-01-05 11:59] LABS: African American GFR (CKD) 83.5 (60.0-200.0); Albumin 4.3 g/dL (3.80-4.90); Albumin/Globulin Ratio 1.87 (1.60-3.17); Anion Gap 9.2 mmol/L (4.00-12.00); BUN/Creat Ratio 18.18 Ratio (12.00-20.00); Carbon Dioxide 27.8 mmol/L (21.6-31.8); Globulin 2.3 g/dL (1.6-3.3); LDL Cholesterol,Calculated 93.8 mg/dL (0.0-131.0); Potassium 4.3 mmol/L (3.5-5.5); Total Bilirubin 0.9 mg/dL (0.3-1.2); Total Protein 6.6 g/dL (6.2-8.2); VLDL Calculation 34.2 mg/dL (5.00-40.00)
== END | disposition home or self-care (01) ==
LOC: LABWHC1 06:54
PROVIDERS: ATTEND Internal Medicine Interventional Cardiology
DX: E78.2 Mixed hyperlipidemia (principal)
CPT/HCPCS: 36415; 80053; 80061

== ENCOUNTER → 2019-07-12 | Outpatient (CLI) | payer BC ==
[2019-07-12 17:07] LABS: Chol/HDL Ratio 4.56; LDL Cholesterol,Calculated 124.6 mg/dL (0.0-131.0); VLDL Calculation 35.4 mg/dL (5.00-40.00)
== END | disposition home or self-care (01) ==
LOC: LABWHC1 08:03
PROVIDERS: ATTEND Nurse Practitioner Adult Health
DX: E78.2 Mixed hyperlipidemia (principal)
CPT/HCPCS: 36415; 80061; 84450; 84460

== ENCOUNTER → 2020-07-26 | Outpatient (CLI) | payer BC | END | disposition home or self-care (01) | LOC: LABWHC1 08:14 | PROVIDERS: ATTEND Nurse Practitioner Adult Health | DX: E78.2 Mixed hyperlipidemia (principal) | CPT/HCPCS: 36415; 80061; 84450; 84460 ==

== ENCOUNTER → 2021-02-02 | Outpatient (CLI) | payer OTHER ==
[2021-02-02 12:15] LABS: African American GFR (CKD) 74.1 (60.0-200.0); Albumin 4.4 g/dL (3.80-4.90); Albumin/Globulin Ratio 1.69 (1.60-3.17); BUN/Creat Ratio 22.5 Ratio (12.00-20.00); Calcium 9.3 mg/dL (8.7-10.3); Chol/HDL Ratio 4.22; Globulin 2.6 g/dL (1.6-3.3); LDL Cholesterol,Calculated 103.4 mg/dL (0.0-131.0); Potassium 4.6 mmol/L (3.5-5.5); Total Bilirubin 1.1 mg/dL (0.2-1.2); VLDL Calculation 15.6 mg/dL (5.00-40.00)
== END | disposition home or self-care (01) ==
LOC: LABWHC1 08:03
PROVIDERS: ATTEND Internal Medicine Interventional Cardiology
DX: E78.2 Mixed hyperlipidemia (principal)
CPT/HCPCS: 36415; 80053; 80061

== ENCOUNTER → 2022-01-03 | Outpatient (CLI) | payer OTHER ==
[2022-01-03 11:23] LABS: ALT 23 U/L (10-49); AST 21 U/L (14-35); African American GFR (CKD) 81.8 (60.0-200.0); Albumin 4.2 g/dL (3.8-4.9); Albumin/Globulin Ratio 1.68 (1.60-3.17); Alkaline Phosphatase 76 U/L (41-126); BUN/Creat Ratio 17.64 Ratio (12.00-20.00); Blood Urea Nitrogen 19.4 mg/dL (9.0-27.0); Calcium 8.9 mg/dL (8.7-10.3); Carbon Dioxide 26.1 mmol/L (20.0-27.5); Chloride 105 mmol/L (96-109); Chol/HDL Ratio 4.36 Ratio; Globulin 2.5 g/dL (1.6-3.3); Glucose 122 mg/dL (70-110); LDL Cholesterol,Calculated 115.2 mg/dL (0.0-131.0); Non-African American GFR(CKD) 70.6 (60.0-200.0); Potassium 4.1 mmol/L (3.5-5.5); Sodium 142 mmol/L (135-145); Total Protein 6.7 g/dL (6.2-8.2)
== END | disposition home or self-care (01) ==
LOC: LABWHC1 06:55
PROVIDERS: ATTEND Internal Medicine Interventional Cardiology
DX: I10 Essential (primary) hypertension (principal); E78.2 Mixed hyperlipidemia
CPT/HCPCS: 36415; 80053; 80061

== ENCOUNTER → 2022-02-28 | Outpatient (CLI) | payer OTHER ==
[2022-02-28 10:46] LABS: HCT 45.2 % (39.6-50.0); HGB 14.9 g/dL (13.0-17.0); MCH 29.7 pg (27.0-32.0); Mean Platelet Volume 10.1 fL (9.5-12.2); NRBC Per 100 WBC 0 /100 WBCS (0.0-0.0); Platelet Count 232 X 10*3/uL (140-440); RBC 5.02 X 10*6/uL (4.40-5.60); RDW 14.1 % (11.5-14.5)
[2022-02-28 12:09] LABS: ALT 23 U/L (10-49); AST 24 U/L (14-35); African American GFR (CKD) 81.8 (60.0-200.0); Albumin 4.3 g/dL (3.8-4.9); Albumin/Globulin Ratio 1.79 (1.60-3.17); Alkaline Phosphatase 74 U/L (41-126); BUN/Creat Ratio 17.09 Ratio (12.00-20.00); Blood Urea Nitrogen 18.8 mg/dL (9.0-27.0); Calcium 9.4 mg/dL (8.7-10.3); Carbon Dioxide 28.2 mmol/L (20.0-27.5); Chloride 104 mmol/L (96-109); Chol/HDL Ratio 3.49 Ratio; Globulin 2.4 g/dL (1.6-3.3); Glucose 122 mg/dL (70-110); LDL Cholesterol,Calculated 87.7 mg/dL (0.0-131.0); Non-African American GFR(CKD) 70.6 (60.0-200.0); Potassium 4.5 mmol/L (3.5-5.5); Sodium 141 mmol/L (135-145); Total Protein 6.7 g/dL (6.2-8.2); VLDL Calculation 17.92 mg/dL (5.00-40.00)
== END | disposition home or self-care (01) ==
LOC: LABWHC1 07:03
PROVIDERS: ATTEND Family Medicine
DX: Z00.01 Encounter for general adult medical examination with abnormal findings (principal)
CPT/HCPCS: 36415; 80053; 80061; 84153; 85027

== ENCOUNTER → 2022-09-08 | Outpatient (CLI) | payer OTHER ==
[2022-09-08 15:54] LABS: ALT 37 U/L (10-49); AST 25 U/L (14-35); Chol/HDL Ratio 4.25 Ratio; LDL Cholesterol,Calculated 108.9 mg/dL (0.0-131.0)
== END | disposition home or self-care (01) ==
LOC: LABWHC1 08:14
PROVIDERS: ATTEND Internal Medicine Interventional Cardiology
DX: E78.2 Mixed hyperlipidemia (principal)
CPT/HCPCS: 36415; 80061; 84450; 84460

== ENCOUNTER → 2023-03-18 | Outpatient (CLI) | payer OTHER ==
[2023-03-18 11:43] LABS: HGB 15.1 d/dL (13.0-17.0); MCHC 32.1 d/dL (32.0-37.0); MCV 90.2 FL (80.0-97.0); Mean Platelet Volume 9.9 FL (9.5-12.2); NRBC Per 100 WBC 0 X 10*3/uL (0.00-0.01); Platelet Count 240 X 10*3/uL (140-440); RBC 5.21 X 10*6/uL (4.40-5.60); RDW 14.1 % (11.5-14.5); WBC 6.16 X 10*3/uL (4.50-10.00)
[2023-03-18 14:07] LABS: ALT 27 U/L (10-49); AST 23 U/L (14-35); Albumin 4.3 d/dL (3.8-4.9); Albumin/Globulin Ratio 1.72 Ratio (1.60-3.17); Alkaline Phosphatase 85 U/L (41-126); BUN/Creat Ratio 11.64 Ratio (12.00-20.00); Blood Urea Nitrogen 12.8 mg/dL (9.0-27.0); Calcium 9.2 mg/dL (8.7-10.3); Chloride 102 mmol/L (96-109); Globulin 2.5 d/dL (1.6-3.3); Glucose 122 mg/dL (70-110); LDL Cholesterol,Calculated 89.6 mg/dL (0.0-131.0); Potassium 4.4 mmol/L (3.5-5.5); Prostate Specific Antigen 0.53 ng/mL (0.000-4.500); Sodium 140 mmol/L (135-145); Total Bilirubin 0.7 mg/dL (0.3-1.2); Total Protein 6.8 d/dL (6.2-8.2)
== END | disposition home or self-care (01) ==
LOC: LABWHC1 06:49
PROVIDERS: ATTEND Family Medicine
DX: Z00.01 Encounter for general adult medical examination with abnormal findings (principal); E66.3 Overweight; N40.1 Benign prostatic hyperplasia with lower urinary tract symptoms; R53.83 Other fatigue
CPT/HCPCS: 36415; 80053; 80061; 84153; 85027

== ENCOUNTER → 2023-09-01 | Outpatient (CLI) | payer MEDICARE ==
[2023-09-01 11:27] LABS: ALT 36 U/L (10-49); AST 22 U/L (14-35); Chol/HDL Ratio 4.04 Ratio; LDL Cholesterol,Calculated 101.4 mg/dL (0.0-131.0); VLDL Calculation 18.16 mg/dL (5.00-40.00)
== END | disposition home or self-care (01) ==
LOC: LABWHC1 06:50
PROVIDERS: ATTEND Nurse Practitioner Adult Health
DX: E78.2 Mixed hyperlipidemia (principal)
CPT/HCPCS: 36415; 80061; 84450; 84460

== ENCOUNTER → 2024-09-20 | Outpatient (CLI) | payer MEDICARE ==
[2024-09-20 10:18] LABS: Basophils # (A) 0.09 X 10*3/uL (0.00-0.10); Basophils % (A) 1.2 %; Eosinophils # (A) 0.29 X 10*3/uL (0.04-0.35); HCT 47.8 % (39.6-50.0); HGB 15.2 g/dL (13.0-17.0); Lymphocytes # (A) 1.62 X 10*3/uL (0.90-5.00); Lymphocytes % (A) 22.1 %; MCH 28.9 pg (27.0-32.0); MCHC 31.8 g/dL (32.0-37.0); MCV 90.9 FL (80.0-97.0); Mean Platelet Volume 10.4 FL (9.5-12.2); Monocytes # (A) 0.64 X 10*3/uL (0.20-1.00); Monocytes % (A) 8.7 %; NRBC Per 100 WBC 0 X 10*3/uL (0.00-0.01); Neutrophils # (A) 4.68 X 10*3/uL (1.80-7.70); Neutrophils % (A) 63.7 %; Platelet Count 230 X 10*3/uL (140-440); RBC 5.26 X 10*6/uL (4.40-5.60); RDW 13.9 % (11.5-14.5); WBC 7.34 X 10*3/uL (4.50-10.00)
[2024-09-20 10:42] LABS: ALT 28 U/L (10-49); AST 25 U/L (14-35); Albumin 4.3 g/dL (3.8-4.9); Albumin/Globulin Ratio 1.65 Ratio (1.60-3.17); Alkaline Phosphatase 102 U/L (41-126); BUN/Creat Ratio 13.75 Ratio (12.00-20.00); Blood Urea Nitrogen 16.5 mg/dL (9.0-27.0); Calcium 9.2 mg/dL (8.7-10.3); Carbon Dioxide 28.6 mmol/L (21.6-31.8); Chloride 103 mmol/L (96-109); Chol/HDL Ratio 3.83 Ratio; Globulin 2.6 g/dL (1.6-3.3); Glucose 126 mg/dL (70-110); LDL Cholesterol,Calculated 87.3 mg/dL (0.0-131.0); Potassium 4.6 mmol/L (3.5-5.5); Sodium 142 mmol/L (135-145); Total Bilirubin 0.9 mg/dL (0.3-1.2); Total Protein 6.9 g/dL (6.2-8.2)
== END | disposition home or self-care (01) ==
LOC: LABWHC1 06:55
PROVIDERS: ATTEND Family Medicine
DX: E78.2 Mixed hyperlipidemia (principal); R73.03 Prediabetes
CPT/HCPCS: 36415; 80053; 80061; 82043; 82570; 83036; 84443; 85025